=== PATIENT | male | born 1955 | race Caucasian/White ===

== ENCOUNTER 2017-02-20 14:23 | Emergency (ER) | payer SELFPAY ==
[~2017-02-20] VITALS: Ht 167.6 cm; Wt 75.0 kg
[~2017-02-20 14:23] MED LIST: DIAZ-90 PO; HYDR-3720 PO; MORP60TA37 PO; TRAZ100T15 PO
[2017-02-20 14:31] VITALS: Ht 167.6 cm; Wt 75.0 kg
== END 2017-02-20 19:30 | disposition left against medical advice (07) ==
LOC: E/R 14:23
DX: Z53.21 Procedure and treatment not carried out due to patient leaving prior to being seen by health care provider (principal)

== ENCOUNTER 2017-02-26 12:25 | Emergency (ER) | payer OTHER ==
[~2017-02-26] VITALS: Ht 170.2 cm; Wt 79.0 kg
[2017-02-26 12:30] VITALS: Ht 170.2 cm; Wt 79.0 kg
[2017-02-26] MEDS ORDERED: HYDROmorphONE 1 MG/ML SYG IV STA ×2 (13:08→15:38)
[2017-02-26] MEDS ORDERED: ONDANSETRON (ODT) 4 MG TAB ODT STA (13:08)
[2017-02-26] MEDS ORDERED: MORP-58 PO (13:09)
--- NOTE | 2017-02-26 13:12 | ERA ---
ER Documentation Chief Complaint Date/Time DATE: 02/26/17 TIME: 13:10 Chief Complaint CHRONIC RT ARM PAIN , STATES SENT BY DR WELCH NEEDS VASCULAR SURGERY HPI Patient is a 61-year-old male with history of chronic back pain who injected morphine for several years into bilateral arms for pain, and developed scar tissue in right greater than left arm. For the last 9 days he has been experiencing gradual onset constant, moderate to severe pain and discoloration to the right arm below the elbow, as well as paresthesias to his right arm distal to the elbow. He is seeing his primary doctor, Dr. Welch, who sent him to the ER for concern of thromboembolic disease. Patient denies fever, denies severe pain in the forearm, denies recent IV injection or history of drug abuse. Patient is left-hand dominant. ROS All systems reviewed and are negative except as per history of present illness. Medications Home Meds Reported Medications Morphine Sulfate* (Oramorph SR*) 30 Mg Tablet.sa, 30 MG PO Q4 Y for SEVERE PAIN LEVEL 7-10, TAB.SA 02/26/17 Discontinued Reported Medications Trazodone Hcl* (Trazodone Hcl*) 100 Mg Tablet, 100 MG PO HS, TAB 08/16/15 Hydrocodone Bit-Acetaminophen* ([place]*) 7.5-325 Tablet, 1 TAB PO Q4H Y for PAIN , TAB 03/18/15 Diazepam* (Valium*) 5 Mg Tablet, 10 MG PO PM, TAB 03/18/15 Morphine Sulfate* (Ms Contin*) 60 Mg Tablet.sa, 30 MG PO Q12, TAB.SA 03/18/15 Allergies Allergies: Coded Allergies: vancomycin (Verified Allergy, Mild, ITCHING, 02/26/17) PMhx/Soc Past medical history: Chronic back pain Past surgical history: Multiple back surgeries Social history: Smokes cigarettes, denies alcohol or illicit drugs History of Surgery: Yes Anesthesia Reaction: No Hx Neurological Disorder: No Hx Respiratory Disorders: No Hx Cardiac Disorders: No Hx Psychiatric Problems: No Hx Miscellaneous Medical Probl: Yes Hx Alcohol Use: No Hx Substance Use: No Hx Tobacco Use: Yes (PPD) FmHx Family History: No coronary disease, No diabetes Physical Exam Vitals Vital Signs Date Time Temp Pulse Resp B/P Pulse Ox O2 Delivery O2 Flow Rate FiO2 02/26/17 16:31 68 13 139/76 100 Room Air 02/26/17 13:27 98.2 97 16 160/100 96 Room Air 02/26/17 12:30 98.2 82 18 111/84 98 Physical Exam Const: Alert, in moderate distress, tremulous Head: Atraumatic Eyes: Normal Conjunctiva, no pallor or icterus ENT: Normal External Ears, Nose and Mouth. Mucous membranes moist Neck: Full range of motion. No meningismus. Resp: Clear to auscultation bilaterally, no wheezes, no rales Cardio: Regular rate and rhythm, no murmurs, 1+ radial pulse right arm 2+ left arm. Abd: Soft, non tender, non distended. Skin: Mottled appearance to right arm below the elbow, with embolic lesions to forearm and digits. 2-3 second capillary refill of all digits. Back: No midline or flank tenderness Ext: No cyanosis, or edema, compartments soft, extensive scar tissue to the right upper arm with tenderness, no fluctuance, no erythema, no induration. Neur: Awake and alert, cranial nerves II through XII intact bilaterally, motor intact in 4 extremities, sensation intact with paresthesias to the fingertips of right hand. Psych: Normal Mood and Affect Result Diagram: 02/26/17 1315 02/26/17 1315 Results 24 hrs Laboratory Tests Test 02/26/17 13:15 White Blood Count 6.010^3/ul Red Blood Count 4.3610^6/ul Hemoglobin 14.0g/dl Hematocrit 40.6% Mean Corpuscular Volume 93.1fl Mean Corpuscular Hemoglobin 32.1pg Mean Corpuscular Hemoglobin Concent 34.5g/dl Red Cell Distribution Width 12.3% Platelet Count 17649^3/UL Mean Platelet Volume 10.1fl Neutrophils % 66.2% Lymphocytes % 24.3% Monocytes % 7.4% Eosinophils % 1.5% Basophils % 0.3% Nucleated Red Blood Cells % 0.0/100WBC Neutrophils # 4.010^3/ul Lymphocytes # 1.510^3/ul Monocytes # 0.410^3/ul Eosinophils # 0.110^3/ul Basophils # 0.010^3/ul Nucleated Red Blood Cells # 0.010^3/ul Prothrombin Time 13.1Sec Prothrombin Time Ratio 1.0 INR International Normalized Ratio 0.99 Activated Partial Thromboplast Time 31.3Sec Sodium Level 137mmol/L Potassium Level 4.6mmol/L Chloride Level 101mmol/L Carbon Dioxide Level 29mmol/L Anion Gap 12 Blood Urea Nitrogen 22mg/dl Creatinine 1.11mg/dl Glucose Level 103mg/dl Calcium Level 9.5mg/dl Creatine Kinase 57IU/L Current Medications Medications (Trade) Dose Ordered Sig/Praful Route PRN Reason Start Time Stop Time Status Last Admin Dose Admin Hydromorphone HCl (Dilaudid) 1 mg ONCE STAT IV 02/26/17 13:08 02/26/17 13:09 DC 02/26/17 13:19 Ondansetron HCl 4 mg 4 mg ONCE STAT ODT 02/26/17 13:08 02/26/17 13:09 DC 02/26/17 13:19 Sodium Chloride (NS) 1,000 ml @ 1,000 mls/hr Q1H ONCE IV 02/26/17 13:30 02/26/17 14:29 DC 02/26/17 13:19 IV Flush 10 ml 10 ml STK-MED ONCE .ROUTE 02/26/17 15:29 02/26/17 15:30 DC 02/26/17 16:03 Sodium Chloride (NS) 100 ml @ ud STK-MED ONCE .ROUTE 02/26/17 15:29 02/26/17 15:30 DC 02/26/17 16:03 Iodixanol (Visipaque Locm) 100 ml STK-MED ONCE .ROUTE 02/26/17 15:29 02/26/17 15:30 DC 02/26/17 16:03 Hydromorphone HCl (Dilaudid) 1 mg ONCE STAT IV 02/26/17 15:38 02/26/17 15:39 DC 02/26/17 16:18 Aspirin 162 mg 162 mg ONCE STAT PO 02/26/17 16:53 02/26/17 16:57 DC 02/26/17 17:19 Heparin Sodium (Porcine) (Heparin 63615 Units/250 ml) 250 ml @ 0 mls/hr ONCE STAT IV 02/26/17 16:53 02/26/17 16:57 DC Procedures/MDM Spoke with Dr. Welch at 1250, requests vascular imaging and vascular surgery consult. Spoke with Dr. Wilde, vascular surgeon at 1:05 PM, requests CT angiogram and Doppler ultrasound of the extremity. MDM: Patient is a 61-year-old male sent in by Dr. Welch for 9 days of pain and mottling to right arm below the elbow. The patient has signs of thromboembolic disease in the arm and hand. Appearance of the arm is apparently improved compared to earlier in the week, but the patient has persistent pain and paresthesias. There is no pallor, skin is warm to touch, and there is minimal neurologic impairment with paresthesia to the fingertips only. A CT angiogram of the extremity demonstrated attenuation of the proximal brachial artery with diminished flow in the forearm. I discussed these findings with Dr. Wilde, who stated that there was concern for distal embolization based upon the patient 's exam, and that he would not be able to treat any thromboembolic disease, which would require embolectomy or thrombolysis. He therefore recommended transferring the patient to a tertiary care center for vascular surgery care. He also recommended starting the patient on a heparin drip. I discussed the plan to transfer the patient with the patient, and the patient refused to be transferred. I further discussed the patient's refusal with Dr. Welch and Dr. Wilde, who stated that if the patient decides to leave the hospital AMA, he recommends that the patient be put on Xarelto and that he can follow him in the clinic in 2 days. I had extensive discussion with the patient regarding the need for vascular surgery care, the urgency of having this done, including the risk of ischemia to the arm that could result in permanent disability of the arm or loss of the arm. The patient and his understood these risks, and the patient refused to be admitted to the hospital and signed an AMA form. I offered the patient a prescription for Xarelto, but the patient refused, citing history of optic ulcer disease and concern for risk of bleeding. I did provide the patient with information to contact Dr. Wilde, and encouraged him to follow-up in 2 days at his clinic. I advised the patient to return to the ER immediately if he experienced any worsening symptoms or changed his mind about seeking further vascular care. CT angiogram did show some fat stranding with question of cellulitis, but clinically there is no evidence of cellulitis, and the patient has no fever or leukocytosis. Critical Care: Time: 35 minutes exlcuding all billable procedures. Treatments/Evaluations: Serial neurovascular exams of an ischemic limb, discussion with radiology and vascular surgery regarding optimal workup and treatment, extensive discussion with the patient's physician, the patient and family regarding risks and benefits of treatment and other options. Planned interventions including heparinization and transfer for higher level of care. Departure Diagnosis: Primary Impression: Arterial occlusion Additional Impression: Thromboembolism of upper extremity artery Condition: JONNY Jerry MD Feb 26, 2017 13:12
[2017-02-26 13:27] VITALS: TEMP 98.2
[2017-02-26 13:30] LABS: ADD SCAN DIFF NO
[2017-02-26] MEDS ORDERED: SOD CHLORIDE 0.9% 1,000 ML IV ONE (13:30)
[2017-02-26 13:38] LABS: BASOPHILS % 0.3 % (0.0-2.0); EOSINOPHILS # 0.1 10^3/ul (0.0-0.5); EOSINOPHILS % 1.5 % (0.0-7.0); HEMATOCRIT 40.6 % (42.0-52.0); LYMPHOCYTES # 1.5 10^3/ul (0.8-2.9); LYMPHOCYTES % 24.3 % (15.0-51.0); MEAN CORPUSCULAR HEMOGLOBIN 32.1 pg (29.0-33.0); MEAN CORPUSCULAR HGB CONC 34.5 g/dl (32.0-37.0); MEAN CORPUSCULAR VOLUME 93.1 fl (82.0-101.0); MEAN PLATELET VOLUME 10.1 fl (7.4-10.4); MONOCYTE # 0.4 10^3/ul (0.3-0.9); MONOCYTES % 7.4 % (0.0-11.0); NEUTROPHILS % 66.2 % (39.0-77.0); PLATELET COUNT 241 10^3/UL (140-415); RED BLOOD COUNT 4.36 10^6/ul (4.70-6.10); RED CELL DISTRIBUTION WIDTH 12.3 % (11.5-14.5)
[2017-02-26 13:47] LABS: INR 0.99; PROTIME 13.1 Sec (12.2-14.2)
[2017-02-26 13:48] LABS: PARTIAL THROMBOPLASTIN TIME 31.3 Sec (25.0-35.0)
[2017-02-26 13:52] LABS: CALCIUM 9.5 mg/dl (8.4-10.2); CREATININE 1.11 mg/dl (0.61-1.24); POTASSIUM 4.6 mmol/L (3.5-5.1)
[2017-02-26] MEDS ORDERED: IODIXANOL LOCM 100 ML BTL ONE (15:29)
[2017-02-26] MEDS ORDERED: SOD CHLORIDE 0.9% 100 ML ONE (15:29)
--- NOTE | 2017-02-26 15:53 | RADRPT ---
PROCEDURE: US right upper extremity veins. CLINICAL INDICATION: Right arm pain and swelling. TECHNIQUE: Multiple longitudinal and transverse images of the right upper extremity venous tree wa s obtained with [place] scale, pulsed Doppler, and color Doppler imaging. COMPARISON: None available FINDINGS: The right internal jugular, subclavian, axillary, brachial, basilic, cephalic, radial, and ulnar vei ns are patent. There is normal flow with augmentation and compressibility throughout. There is no t hrombus or occlusion. IMPRESSION: 1. Normal venous system of the right upper extremity. No evidence of thrombus or occlusion. RPTAT: QQ .Blas Hart MD, MD Date Time Electronically viewed and signed by .Blas Hart MD, MD on 02/26/2017 15:53 .R/
[2017-02-26 16:31] VITALS: BP 139/76; PULSE 68; RESP 13
--- NOTE | 2017-02-26 16:35 | RADRPT ---
PROCEDURE: CTA right upper extremity. CLINICAL INDICATION: Right arm pain and swelling. Infection with drainage. Evaluate for embolus. TECHNIQUE: A CTA of the right upper extremity was performed on a multi-slice CT scanner utilizing high-resolution axial imaging. Sagittal, coronal, multiplanar reformatted images were made. 3-D MIP images were also reviewed. Images were acquired after 85 cc of Visipaque 320 were given intravenous ly without complication. COMPARISON: None FINDINGS: The study is very limited due to venous contamination. Right axillary artery is patent. There is s ignificant attenuation of the proximal right brachial artery. There is relatively normal caliber mi d distal right brachial artery to the level of the elbow joint. There is no adequate opacification of the radial ulnar/interosseous arteries in the forearm for the evaluation. There is an amorphous soft tissue thickening with dystrophic calcifications in the lateral aspect of the mid upper arm. There is a skin defect inferiorly. There is subcutaneous fatty stranding at th is level with no drainable fluid collection. IMPRESSION: The study is very limited for the evaluation of the right upper extremity arteries, as detailed abov e. The patient refused repeat scan per technologist note. Recommend right upper extremity arterial Doppler study. 1. Right axillary artery is patent. Attenuated proximal right brachial artery with relatively paolo l caliber mid distal right brachial artery. Inadequate opacification of the forearm arteries. 2. Amorphous soft tissue thickening and with dystrophic calcifications in the lateral mid upper arm . The skin defect in the inferior aspect of this soft tissue thickening with surrounding subcutaneo us fatty stranding suggesting cellulitis. No drainable fluid collection is identified. No destruct venus osseous changes of the humerus. RPTAT: BB .Cally Coulter MD, Date Time Electronically viewed and signed by .Cally Coulter MD, on 02/26/2017 16:35 .O/
[2017-02-26] MEDS ORDERED: HEPARIN 25000 UNITS/250 ML 250 ML IV STA (16:53)
[2017-02-26] MEDS ORDERED: ASPIRIN 81 MG TAB PO STA (16:53)
== END 2017-02-26 17:53 | disposition left against medical advice (07) ==
LOC: E/R 12:25
DX: I74.2 Embolism and thrombosis of arteries of the upper extremities (principal); F17.210 Nicotine dependence, cigarettes, uncomplicated
CPT/HCPCS: 36415; 73206; 80048; 82550; 82553; 84484; 85025; 85610; 85730; 93971; 96361; 96374; 96376; J1170; J1644; J7030; Q9967; Z7502; Z7610

== ENCOUNTER 2017-05-06 16:10 | Emergency (ER) | payer OTHER ==
[~2017-05-06] VITALS: Ht 170.2 cm; Wt 81.8 kg
[~2017-05-06 16:10] MED LIST changes: -DIAZ-90 PO; -HYDR-3720 PO; +MORP-58 PO; -MORP60TA37 PO; -TRAZ100T15 PO
[2017-05-06 16:13] VITALS: Ht 170.2 cm; Wt 81.8 kg
[2017-05-06] MEDS ORDERED: NITROGLYCERIN 2% 1 GM OINT PKT TD STA (19:15)
[2017-05-06] MEDS ORDERED: HYDROmorphONE 1 MG/ML SYG IV STA ×2 (19:15→19:24)
[2017-05-06] MEDS ORDERED: ONDANSETRON 4 MG INJ IV STA (19:15)
[2017-05-06] MEDS ORDERED: ASPIRIN 325 MG TAB PO STA (19:15)
[2017-05-06 19:31] LABS: ADD SCAN DIFF NO
[2017-05-06 19:33] LABS: BASOPHILS % 0.6 % (0.0-2.0); EOSINOPHILS # 0.1 10^3/ul (0.0-0.5); EOSINOPHILS % 1.9 % (0.0-7.0); HEMATOCRIT 40.3 % (42.0-52.0); HEMOGLOBIN 14.4 g/dl (14.0-18.0); LYMPHOCYTES # 2.2 10^3/ul (0.8-2.9); LYMPHOCYTES % 35.8 % (15.0-51.0); MEAN CORPUSCULAR HEMOGLOBIN 32.4 pg (29.0-33.0); MEAN CORPUSCULAR HGB CONC 35.7 g/dl (32.0-37.0); MEAN CORPUSCULAR VOLUME 90.6 fl (82.0-101.0); MEAN PLATELET VOLUME 10.3 fl (7.4-10.4); MONOCYTE # 0.5 10^3/ul (0.3-0.9); MONOCYTES % 8.3 % (0.0-11.0); NEUTROPHIL # 3.3 10^3/ul (1.6-7.5); NEUTROPHILS % 53.2 % (39.0-77.0); PLATELET COUNT 161 10^3/UL (140-415); RED BLOOD COUNT 4.45 10^6/ul (4.70-6.10); RED CELL DISTRIBUTION WIDTH 12.6 % (11.5-14.5); WHITE BLOOD COUNT 6.3 10^3/ul (4.8-10.8)
[2017-05-06 19:48] LABS: INR 0.92; PARTIAL THROMBOPLASTIN TIME 28.6 Sec (25.0-35.0); PROTIME 12.4 Sec (12.2-14.2)
--- NOTE | 2017-05-06 20:01 | ERA ---
ER Documentation Chief Complaint Date/Time DATE: 05/06/17 TIME: 19:58 Chief Complaint CHEST PAIN COMES AND GOES, STARTED YESTERDAY, SOB HPI 61-year-old male, ronald, who presents to the emergency room complaining of chest pain. The patient is a somewhat difficult historian. He does have a history of chronic pain. Vasculopath. The patient states a remote angiogram approximately 20 years ago. He describes approximately 24 hours of pain that is substernal to the chest slightly radiating to the left shoulder but not to the back. He notes mild shortness of breath but no pleuritic pain, no calf swelling. Only mild pain currently. ROS All systems reviewed and are negative except as per history of present illness. Medications Home Meds Reported Medications Morphine Sulfate* (Oramorph SR*) 30 Mg Tablet.sa, 30 MG PO Q4 Y for SEVERE PAIN LEVEL 7-10, TAB.SA 02/26/17 Allergies Allergies: Coded Allergies: vancomycin (Verified Allergy, Mild, ITCHING, 02/26/17) PMhx/Soc History of Surgery: Yes Anesthesia Reaction: No Hx Neurological Disorder: No Hx Respiratory Disorders: No Hx Cardiac Disorders: No ([place]) Hx Psychiatric Problems: No Hx Miscellaneous Medical Probl: Yes (fibromyalgia) Hx Alcohol Use: No Hx Substance Use: No Hx Tobacco Use: Yes (PPD) Physical Exam Vitals Vital Signs Date Time Temp Pulse Resp B/P Pulse Ox O2 Delivery O2 Flow Rate FiO2 05/06/17 16:13 97.6 84 18 191/80 91 Physical Exam General: Well developed, well nourished, no acute distress Head: Normocephalic, atraumatic. Eyes: Pupils equally reactive, EOM intact ENT: Moist mucous membranes Neck: Supple, no lymphadenopathy Respiratory: Lungs clear bilaterally, no distress Cardiovascular: RRR, no murmurs, rubs, or gallops Abdominal: Soft, non-tender, non-distended, no peritoneal signs : Deferred MSK: No edema, no unilateral swelling, 5/5 strength Neurologic: Alert and oriented, moving all extremities, normal speech, no focal weakness, no cerebellar signs Skin: No rash Psych: Normal mood Result Diagram: 05/06/17192405/06/171924 Results 24 hrs Laboratory Tests Test 05/06/17 19:25 White Blood Count 6.310^3/ul Red Blood Count 4.4510^6/ul Hemoglobin 14.4g/dl Hematocrit 40.3% Mean Corpuscular Volume 90.6fl Mean Corpuscular Hemoglobin 32.4pg Mean Corpuscular Hemoglobin Concent 35.7g/dl Red Cell Distribution Width 12.6% Platelet Count 37605^3/UL Mean Platelet Volume 10.3fl Neutrophils % 53.2% Lymphocytes % 35.8% Monocytes % 8.3% Eosinophils % 1.9% Basophils % 0.6% Nucleated Red Blood Cells % 0.0/100WBC Neutrophils # 3.310^3/ul Lymphocytes # 2.210^3/ul Monocytes # 0.510^3/ul Eosinophils # 0.110^3/ul Basophils # 0.010^3/ul Nucleated Red Blood Cells # 0.010^3/ul Prothrombin Time 12.4Sec Prothrombin Time Ratio 1.0 INR International Normalized Ratio 0.92 Activated Partial Thromboplast Time 28.6Sec Sodium Level 141mmol/L Potassium Level 4.7mmol/L Chloride Level 104mmol/L Carbon Dioxide Level 26mmol/L Anion Gap 16 Blood Urea Nitrogen 32mg/dl Creatinine 1.11mg/dl Glucose Level 91mg/dl Calcium Level 9.7mg/dl Troponin I < 0.012ng/ml Current Medications Medications (Trade) Dose Ordered Sig/Praful Route PRN Reason Start Time Stop Time Status Last Admin Dose Admin Aspirin (Aspirin) 325 mg ONCE STAT PO 05/06/17 19:15 05/06/17 19:17 DC 05/06/17 19:26 Nitroglycerin (Nitroglycerin 2% Oint) 1 inch ONCE STAT TD 05/06/17 19:15 05/06/17 19:18 DC 05/06/17 19:25 Hydromorphone HCl (Dilaudid) 1 mg ONCE STAT IV 05/06/17 19:15 05/06/17 19:18 DC 05/06/17 19:26 Ondansetron HCl (Zofran Inj) 4 mg ONCE STAT IV 05/06/17 19:15 05/06/17 19:18 DC 05/06/17 19:26 Hydromorphone HCl (Dilaudid) 1 mg ONCE STAT IV 05/06/17 19:24 05/06/17 19:25 DC 6/19/17 19:32 Procedures/MDM EKG, MONITORS, & DIAGNOSTIC IMAGING: EKG: I reviewed and interpreted a 12-lead EKG. Rhythm: Normal sinus rhythm Ectopy: None Intervals: No abnormalities ST segments: No elevations or depressions T waves: No contiguous inversions Repeat EKG: EKG: I reviewed and interpreted a 12-lead EKG. Rhythm: Normal sinus rhythm Ectopy: None Intervals: No abnormalities ST segments: No elevations or depressions T waves: No contiguous inversions Chest x-ray: I reviewed and interpreted a 1 view of the chest Mediastinum: No enlargement Cardiac silhouette: No cardiomegaly Airspace: Clear lung cassidy bilaterally without evidence of pneumothorax Bones: No evidence of fracture LAB INTERPRETATION: Negative troponin MEDICAL DECISION MAKING: The patient's history, physical exam and clinical presentation is concerning for possible cardiogenic etiology and acute coronary syndrome. Based on the patient's clinical exam and history and risk factors, I have a much lower clinical concern for pulmonary embolism, acute aortic dissection, pneumothorax, pneumonia, cardiac tamponade HEART Score: 5 MACE Rate: 16.6% Shared Decision Making: We had a conversation regarding risk stratification, MACE rate, and the risks, benefits, alternatives of disposition planning options. Disposition planning: Strong recommendation for hospitalization given risk profile ER COURSE: The patient has chronic pain and is requesting Dilaudid. A single dose of 2 mg Dilaudid provided. Patient was given aspirin and nitroglycerin. Chest pain is improved. I kept the patient and/or family informed of laboratory and diagnostic imaging results throughout the emergency room course. DISPOSITION PLAN: Telemetry admission to rule out acute coronary syndrome, risk stratification CONSULTATION: Accepting care team and consultations: I discussed the current laboratory data, diagnostic imaging and emergency care provided. Admitting team: Dr. Hopson Admitting team indication: Insurance directed Departure Diagnosis: Primary Impression: Chest pain Qualified Code: R07.9 - Chest pain, unspecified type Condition: Stable WILBUR MUÑOZ MD May 06, 2017 20:01
[2017-05-06 20:02] LABS: ANION GAP 16 (8-16); BLOOD UREA NITROGEN 32 mg/dl (7-20); CALCIUM 9.7 mg/dl (8.4-10.2); CARBON DIOXIDE 26 mmol/L (21-31); CHLORIDE 104 mmol/L (97-110); CREATININE 1.11 mg/dl (0.61-1.24); GLUCOSE 91 mg/dl (70-220); POTASSIUM 4.7 mmol/L (3.5-5.1); SODIUM 141 mmol/L (135-144)
--- NOTE | 2017-05-06 20:15 | RADRPT ---
PROCEDURE: Chest x-ray CLINICAL INDICATION: Chest pain TECHNIQUE: Chest single view COMPARISON: 04/26/2016 FINDINGS: The heart is normal in size. The pulmonary vessels are normal in caliber. The lungs are clear. Th e costophrenic angles are sharp. The visualized bony thorax is unremarkable. There is extensive cer vical spine hardware which is unchanged IMPRESSION: No acute cardiopulmonary disease. No interval change RPTAT: HH .Anshul Crowley MD, MD Date Time Electronically viewed and signed by .Anshul Crowley MD, on 05/06/2017 20:15 .W/
[2017-05-06 20:40] LABS: TROPONIN-I < 0.012 ng/ml (0.00-0.12)
[2017-05-06] MEDS ORDERED: ONDANSETRON 4 MG INJ IV PRN (21:00)
[2017-05-06] MEDS ORDERED: ACETAMINOPHEN 325 MG TAB PO PRN (21:00)
[2017-05-07 01:00] VITALS: BP 98/67; PULSE 67; RESP 14
[2017-05-07] MEDS ORDERED: HYDROCODONE/APAP (5/325) TAB PO PRN (01:00)
[2017-05-07] MEDS ORDERED: morphine (ER) 30 MG TAB PO PRN (01:00)
[2017-05-07] MEDS ORDERED: ONDANSETRON 4 MG INJ IV PRN (01:00)
[2017-05-07] MEDS ORDERED: ZOLPIDEM 5 MG TAB PO PRN (01:00)
[2017-05-07] MEDS ORDERED: DOCUSATE SODIUM 100 MG CAP PO PRN (01:00)
[2017-05-07] MEDS ORDERED: NITROGLYCERIN (SL) 0.4 MG TAB SL PRN (01:00)
[2017-05-07] MEDS ORDERED: ACETAMINOPHEN 325 MG TAB PO PRN (01:00)
[2017-05-07] MEDS ORDERED: morphine 2 MG INJ IV PRN (01:00)
[2017-05-07] MEDS ORDERED: MAGNESIUM HYDROXIDE 30ML CUP PO PRN (01:00)
[2017-05-07] MEDS ORDERED: NACL 0.9% 3 ML SYG IV SCH (01:00)
[2017-05-07 02:09] LABS: CREATINE KINASE 43 IU/L (23-200)
[2017-05-07 02:34] LABS: CK-MB 1.09 ng/ml (0.0-2.4); TROPONIN-I < 0.012 ng/ml (0.00-0.12)
--- NOTE | 2017-05-07 03:19 | HP ---
DATE OF ADMISSION: 05/06/2017 CHIEF COMPLAINT: Chest pain. 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 It appears to be a vasculopath. The patient has had extensive spinal surgeries in the [facility] with Dr. Pérez with neurosurgery. The patient does state that he has chronic chest pain but it b ecame acutely worse yesterday. He stated that he took some nitroglycerin and morphine and the pain did improve but became concerned. Patient is a somewhat poor historian and quite verbose. The nikolay ent appears to have multiple medical issues, mostly pertaining to pain in various parts of his body. His main complaint at this time is his chest pain. PAST MEDICAL HISTORY: Chronic pain with spinal surgery in the past. HOME MEDICATIONS: Morphine. ALLERGIES: VANCOMYCIN. FAMILY HISTORY: Noncontributory. SOCIAL HISTORY: The patient is a smoker. He states that he recently quit. He denies any alcohol a buse, drug abuse. REVIEW OF SYSTEMS: A 12-point review of systems negative except as in HPI. PHYSICAL EXAMINATION: VITAL SIGNS: Temperature is 97.6, pulse 87, respiratory rate 16, BP 139/84, saturation 95% room air . GENERAL: In no acute distress, alert and oriented. HEENT: Normocephalic, atraumatic. LUNGS: Clear to auscultation. CARDIOVASCULAR: Regular rate and rhythm. ABDOMEN: Nondistended, nontender, soft. EXTREMITIES: No clubbing, cyanosis, or edema. LABORATORIES: White count 6.3, hemoglobin 14.4, platelets are 161,000. Chemistry within normal deleon its except for a BUN of 32. Troponin is negative. INR is normal. DIAGNOSTICS: Chest x-ray shows no acute cardiopulmonary disease. EKG shows normal sinus rhythm, no signs of ischemia. ASSESSMENT AND PLAN: 1. Intermittent chest pain. The patient denies any history of bypass surgery or PCIs. He does sta te that he was told he has had 2 little heart attacks in the past. We will obtain a 2D echo, trend troponins. The patient will likely need a cardiology consultation in the a.m. 2. Neck discomfort. Patient states that he feels as though he has a blockage in his neck. No brui ts are appreciated on physical exam. 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 Will obtain a carotid ultrasound for further evaluation. 3. Chronic pain. Will treat with [place] and morphine, as well as Tylenol as needed. 3. Prophylaxis. Lovenox. Dictated By: BING MORRIS MD BS/NTS Conf#: [id number] DID#: [id number]
[2017-05-07] MEDS ORDERED: ENOXAPARIN 40 MG/0.4 ML SYG SC SCH (09:00)
[2017-05-08] MEDS ORDERED: ASPIRIN 81 MG TAB PO SCH (09:00)
== END 2017-05-07 03:54 | disposition left against medical advice (07) ==
LOC: FTE 16:10 → E/R 05-07 03:54
DX: R07.9 Chest pain, unspecified (principal)
CPT/HCPCS: 36415; 71010; 80048; 82550; 82553; 84484; 85025; 85610; 85730; 93005; 96374; 96375; J1170; J2405; Z7502; Z7610

== ENCOUNTER 2017-05-16 09:47 | Inpatient (IN) | payer OTHER ==
[~2017-05-16] VITALS: Ht 157.5 cm; Wt 79.5 kg
[2017-05-16 09:51] VITALS: Ht 157.5 cm; Wt 79.5 kg
[2017-05-16] MEDS ORDERED: ASPIRIN 325 MG TAB PO STA (10:03)
[2017-05-16] MEDS ORDERED: NITROGLYCERIN 2% 1 GM OINT PKT TD STA (10:03)
[2017-05-16] MEDS ORDERED: TRAZ100T15 PO (10:14)
[2017-05-16] MEDS ORDERED: NIT4 SL (10:14)
[2017-05-16] MEDS ORDERED: DIAZ10TA4 PO (10:14)
[2017-05-16 10:24] LABS: ADD SCAN DIFF NO
[2017-05-16 10:28] LABS: BASOPHILS % 0.5 % (0.0-2.0); EOSINOPHILS # 0.1 10^3/ul (0.0-0.5); EOSINOPHILS % 1.3 % (0.0-7.0); HEMATOCRIT 40.4 % (42.0-52.0); LYMPHOCYTES # 1.9 10^3/ul (0.8-2.9); LYMPHOCYTES % 31.3 % (15.0-51.0); MEAN CORPUSCULAR HEMOGLOBIN 31.3 pg (29.0-33.0); MEAN CORPUSCULAR HGB CONC 34.7 g/dl (32.0-37.0); MEAN CORPUSCULAR VOLUME 90.2 fl (82.0-101.0); MEAN PLATELET VOLUME 10.2 fl (7.4-10.4); MONOCYTE # 0.5 10^3/ul (0.3-0.9); MONOCYTES % 7.8 % (0.0-11.0); NEUTROPHIL # 3.5 10^3/ul (1.6-7.5); NEUTROPHILS % 58.9 % (39.0-77.0); PLATELET COUNT 168 10^3/UL (140-415); RED BLOOD COUNT 4.48 10^6/ul (4.70-6.10); RED CELL DISTRIBUTION WIDTH 12.8 % (11.5-14.5)
[2017-05-16] MEDS ORDERED: ONDANSETRON 4 MG INJ IV STA (10:35)
[2017-05-16 10:41] LABS: INR 0.93; PROTIME 12.5 Sec (12.2-14.2)
[2017-05-16 10:42] LABS: PARTIAL THROMBOPLASTIN TIME 31.6 Sec (25.0-35.0)
[2017-05-16 10:47] LABS: ANION GAP 12 (8-16); BLOOD UREA NITROGEN 28 mg/dl (7-20); CALCIUM 9.3 mg/dl (8.4-10.2); CARBON DIOXIDE 26 mmol/L (21-31); CHLORIDE 104 mmol/L (97-110); CREATININE 1.22 mg/dl (0.61-1.24); GLUCOSE 93 mg/dl (70-220); SODIUM 138 mmol/L (135-144)
--- NOTE | 2017-05-16 10:51 | ERA ---
ER Documentation Chief Complaint Date/Time DATE: 05/16/17 TIME: 10:49 Chief Complaint Complains of chest pain x weeks HPI 61-year-old gentleman who presents the emergency room with chest pain. The patient describes several weeks of chest pain that is substernal pressure-like with associated diaphoresis and nausea. The patient had her hospitalization approximately 9 days ago but left prior to completion of workup including cardiology consultation. The patient states that he left AMA or "the nurses felt I should go home ". The patient does describe mild chest discomfort currently. He denies any pleuritic pain fevers or chills. The patient does have a history of chronic pain and sees a pain specialist. ROS All systems reviewed and are negative except as per history of present illness. Medications Home Meds Reported Medications Nitroglycerin* (Nitrostat*) 0.4 Mg Tab.subl, 0.4 MG SL Q5MIN Y for CHEST PAIN, BOTTLE 05/16/17 Trazodone Hcl* (Trazodone Hcl*) 100 Mg Tablet, 200-400 MG PO QHS, #30 TAB 05/16/17 Diazepam* (Diazepam*) 10 Mg Tablet, 10 MG PO TID, TAB 05/16/17 Morphine Sulfate* (Oramorph SR*) 30 Mg Tablet.sa, 30 MG PO Q4 Y for SEVERE PAIN LEVEL 7-10, TAB.SA 02/26/17 Allergies Allergies: Coded Allergies: vancomycin (Verified Allergy, Mild, ITCHING, 05/16/17) PMhx/Soc History of Surgery: Yes Anesthesia Reaction: No Hx Neurological Disorder: No Hx Respiratory Disorders: No Hx Cardiac Disorders: No ([place]) Hx Psychiatric Problems: No Hx Miscellaneous Medical Probl: Yes (fibromyalgia) Hx Alcohol Use: No Hx Substance Use: No Hx Tobacco Use: Yes (PPD) Smoking Status: Current every day smoker FmHx Family History: No diabetes Physical Exam Vitals Vital Signs Date Time Temp Pulse Resp B/P Pulse Ox O2 Delivery O2 Flow Rate FiO2 05/16/17 10:15 Nasal Cannula 2 05/16/17 09:51 98.0 86 20 128/84 95 Physical Exam General: Well developed, well nourished, no acute distress Head: Normocephalic, atraumatic. Eyes: Pupils equally reactive, EOM intact ENT: Moist mucous membranes Neck: Supple, no lymphadenopathy Respiratory: Lungs clear bilaterally, no distress Cardiovascular: RRR, no murmurs, rubs, or gallops Abdominal: Soft, non-tender, non-distended, no peritoneal signs : Deferred MSK: No edema, no unilateral swelling, 5/5 strength Neurologic: Alert and oriented, moving all extremities, normal speech, no focal weakness, no cerebellar signs Skin: No rash Psych: Normal mood Result Diagram: 05/16/17 1016 05/16/17 1016 Results 24 hrs Laboratory Tests Test 05/16/17 10:16 White Blood Count 6.010^3/ul Red Blood Count 4.4810^6/ul Hemoglobin 14.0g/dl Hematocrit 40.4% Mean Corpuscular Volume 90.2fl Mean Corpuscular Hemoglobin 31.3pg Mean Corpuscular Hemoglobin Concent 34.7g/dl Red Cell Distribution Width 12.8% Platelet Count 76187^3/UL Mean Platelet Volume 10.2fl Neutrophils % 58.9% Lymphocytes % 31.3% Monocytes % 7.8% Eosinophils % 1.3% Basophils % 0.5% Nucleated Red Blood Cells % 0.0/100WBC Neutrophils # 3.510^3/ul Lymphocytes # 1.910^3/ul Monocytes # 0.510^3/ul Eosinophils # 0.110^3/ul Basophils # 0.010^3/ul Nucleated Red Blood Cells # 0.010^3/ul Prothrombin Time 12.5Sec Prothrombin Time Ratio 1.0 INR International Normalized Ratio 0.93 Activated Partial Thromboplast Time 31.6Sec Sodium Level 138mmol/L Potassium Level 4.0mmol/L Chloride Level 104mmol/L Carbon Dioxide Level 26mmol/L Anion Gap 12 Blood Urea Nitrogen 28mg/dl Creatinine 1.22mg/dl Glucose Level 93mg/dl Calcium Level 9.3mg/dl Troponin I < 0.012ng/ml Current Medications Medications (Trade) Dose Ordered Sig/Praful Route PRN Reason Start Time Stop Time Status Last Admin Dose Admin Aspirin (Aspirin) 325 mg ONCE STAT PO 05/16/17 10:03 05/16/17 10:05 DC 05/16/17 10:23 Nitroglycerin (Nitroglycerin 2% Oint) 1 inch ONCE STAT TD 05/16/17 10:03 05/16/17 10:05 DC 05/16/17 10:24 Ondansetron HCl (Zofran Inj) 4 mg ONCE STAT IV 05/16/17 10:35 05/16/17 10:36 DC 05/16/17 10:44 Procedures/MDM EKG, MONITORS, & DIAGNOSTIC IMAGING: EKG: I reviewed and interpreted a 12-lead EKG. Rhythm: Normal sinus rhythm Ectopy: None Intervals: No abnormalities ST segments: No elevations or depressions T waves: No contiguous inversions Repeat EKG: EKG: I reviewed and interpreted a 12-lead EKG. Rhythm: Normal sinus rhythm Ectopy: None Intervals: No abnormalities ST segments: No elevations or depressions T waves: No contiguous inversions Chest x-ray: I reviewed and interpreted a 1 view of the chest Mediastinum: No enlargement Cardiac silhouette: No cardiomegaly Airspace: Clear lung cassidy bilaterally without evidence of pneumothorax Bones: No evidence of fracture LAB INTERPRETATION: Negative troponin MEDICAL DECISION MAKING: The patient's history, physical exam and clinical presentation is concerning for possible cardiogenic etiology and acute coronary syndrome. Based on the patient's clinical exam and history and risk factors, I have a much lower clinical concern for pulmonary embolism, acute aortic dissection, pneumothorax, pneumonia, cardiac tamponade HEART Score: 5 MACE Rate: 16.6 percent Shared Decision Making: We had a conversation regarding risk stratification, MACE rate, and the risks, benefits, alternatives of disposition planning options. Disposition planning: Given that the patient did not complete his inpatient workup, repeat hospitalization is appropriate, patient is agreeable to stay for complete workup ER COURSE: Aspirin and nitroglycerin given. No IV narcotics will be provided to this patient given his chronic pain. Patient wishes to take his home medications. I kept the patient and/or family informed of laboratory and diagnostic imaging results throughout the emergency room course. DISPOSITION PLAN: Telemetry admission for management of chest pain CONSULTATION: Accepting care team and consultations: I discussed the current laboratory data, diagnostic imaging and emergency care provided. Admitting team: Dr. Sullivan Admitting team indication: Insurance directed Departure Diagnosis: Primary Impression: Chest pain Qualified Code: R07.9 - Chest pain, unspecified type Condition: Stable WILBUR MUÑOZ MD May 16, 2017 10:51
[2017-05-16 11:00] LABS: TROPONIN-I < 0.012 ng/ml (0.00-0.12)
--- NOTE | 2017-05-16 11:40 | RADRPT ---
PROCEDURE: XR Chest. CLINICAL INDICATION: Chest pain TECHNIQUE: A single AP view of the chest was obtained. COMPARISON: Chest x-ray dated 05/06/2017 FINDINGS: There is mild bibasilar atelectasis versus scarring. No focal airspace opacification, pleural effus ion or pneumothorax is seen. The cardiomediastinal silhouette is mildly enlarged. The osseous stru ctures demonstrate postsurgical changes from posterior cervical fusion. IMPRESSION: 1. No radiographic evidence of acute cardiopulmonary disease. No significant interval change. 2. Mild cardiomegaly. RPTAT: HH .Kaitlyn Rudd MD, MD Date Time Electronically viewed and signed by .Kaitlyn Rudd MD, MD on 05/16/2017 11:40 .G/
[2017-05-16] MEDS ORDERED: ACETAMINOPHEN 325 MG TAB PO PRN (12:00)
[2017-05-16] MEDS ORDERED: ONDANSETRON 4 MG INJ IV PRN (12:00)
[2017-05-16 13:16] VITALS: BP 114/71; RESP 18; TEMP 98.6
[2017-05-16 16:19] VITALS: PULSE 67
[2017-05-16 16:54] LABS: CREATINE KINASE 68 IU/L (23-200)
[2017-05-16 17:13] LABS: CK-MB 1.27 ng/ml (0.0-2.4); TROPONIN-I < 0.012 ng/ml (0.00-0.12)
--- NOTE | 2017-05-16 18:09 | HP ---
Date/Time of Note Date/Time of Note DATE: 05/16/17 TIME: 17:57 Assessment/Plan VTE Prophylaxis VTE Prophylaxis Intervention: SCD's Lines/Catheters IV Catheter Type (from Nrs): Saline Lock Assessment/Plan Chief Complaint/Hosp Course Assessment 1. Chest pain. To rule out acute coronary syndrome. 2. Chronic back pain. 3. Nicotine use. 4. Substance abuse. 5. Noncompliance with medications and medical management. 6. Opioid dependence. Plan 1. Obtain serial troponins. Obtain 2D echo. Cardiology consult. 2. Continue pain control. Nicotine patch for nicotine use. Plan: The patient will be admitted to inpatient telemetry floor. The patient will be started on a low-cholesterol diet. The patient will be started on DVT prophylaxis and gastrointestinal prophylaxis. The patient will remain a full code. Activities will be as tolerated. The rest of the patient's management will be based on the clinical course and the results of diagnostic studies. Based on the patient's clinical presentation, he most probably requires at least 1 midnight's stay for further management and evaluation of his clinical presentation. The case and management of this patient was fully discussed with Dr. Sullivan Problems: HPI/YEIMI Admit Date/Time Admit Date/Time May 16, 2017 at 11:54 Hx of Present Illness This is a 61-year-old male with opioid dependency status post multiple back surgeries, prior history of essential hypertension, nicotine use, substance abuse, and noncompliance with medications and medical management who came to the emergency room with chief complaint of chest pain. The patient was seen in the emergency room on 05/07/2017 with similar complaints and the patient was scheduled to be admitted to the hospital. However, he left the hospital AGAINST MEDICAL ADVICE. The patient's complaints of chest pain are vague. He verbalized the chest pain as episodic with associated dizziness and syncope. He denied any associated diaphoresis, nausea, or vomiting. Patient underwent a chest x-ray in the emergency room that was negative for any acute cardiopulmonary findings. The patient's 12-lead EKG showed normal sinus rhythm. In the emergency room, the patient has been taking his own pain medications despite instructions by nursing personnel. Upon my interview, he was insisting that he will keep his medications with him and he will take his on pain medications. He was not disclosing what medications he has in his bag. Patient was informed that he needs to follow the hospital policies and only if he is willing to follow the hospital policies, the patient can stay in the hospital and have cardiology evaluate him. ROS Constitutional: no complaints Eyes: no complaints ENT: no complaints Respiratory: no complaints Cardiovascular: chest pain, lightheadedness Gastrointestinal: no complaints Genitourinary: no complaints Musculoskeletal: back pain Skin: no complaints Neurologic: syncope Endocrine: no complaints Lymphatic: no complaints Psychological: anxiety Immunologic: no complaints PMH/Family/Social Past Medical History Medical History: hypertension, other (Chronic back pain, opioid dependent, nicotine use) Past Surgical History Past Surgical Hx: other (Multiple back surgeries) Family History Significant Family History: heart disease Social History Alcohol Use: none Smoking Status: Current every day smoker Drug Use: marijuana Exam/Review of Systems Vital Signs Vitals Vital Signs Date Time Temp Pulse Resp B/P Pulse Ox O2 Delivery O2 Flow Rate FiO2 05/16/17 16:19 67 05/16/17 13:16 98.6 18 114/71 100 Room Air 05/16/17 10:15 2 Exam Exam General: Adequately build 61 year-old male lying in bed in no apparent distress. HEENT: Normocephalic, atraumatic. Eyes: Anicteric sclerae, conjunctivae clear. ENT: Nasal septum midline, oral mucosa moist. Neck supple, no JVD noticed. Respiratory: Bilaterally clear breath sounds. No use of accessory muscles of respiration. No adventitious breath sounds. Cardiovascular: S1, S2 heard. No murmurs or gallops. Abdomen: Soft, nontender, and nondistended. Bowel sounds positive in all 4 quadrants. Genitourinary: Deferred. Extremities: No cyanosis, no clubbing, no edema. Peripheral pulses palpable. Neurologic: Cranial nerves II through XII grossly intact. The patient is awake, alert, and oriented. Skin: Normal skin turgor. No skin rashes. Labs Result Diagram: 05/16/17 1016 05/16/17 1016 Procedures Procedures CXR IMPRESSION: 1. No radiographic evidence of acute cardiopulmonary disease. No significant interval change. 2. Mild cardiomegaly. LEO SIMMONS NP May 16, 2017 18:08
--- NOTE | 2017-05-16 18:11 | DS ---
Date/Time of Note Date/Time of Note DATE: 05/16/17 TIME: 18:09 Discharge Summary Admission/Discharge Info Admit Date/Time May 16, 2017 at 11:54 Discharge Date/Time May 16, 2017 at 17:44 Discharge Diagnosis 1. Chest pain. To rule out acute coronary syndrome. 2. Chronic back pain. 3. Nicotine use. 4. Substance abuse. 5. Noncompliance with medications and medical management. 6. Opioid dependence. Patient Condition: Fair Hx of Present Illness This is a 61-year-old male with opioid dependency status post multiple back surgeries, prior history of essential hypertension, nicotine use, substance abuse, and noncompliance with medications and medical management who came to the emergency room with chief complaint of chest pain. The patient was seen in the emergency room on 05/07/2017 with similar complaints and the patient was scheduled to be admitted to the hospital. However, he left the hospital AGAINST MEDICAL ADVICE. The patient's complaints of chest pain are vague. He verbalized the chest pain as episodic with associated dizziness and syncope. He denied any associated diaphoresis, nausea, or vomiting. Patient underwent a chest x-ray in the emergency room that was negative for any acute cardiopulmonary findings. The patient's 12-lead EKG showed normal sinus rhythm. In the emergency room, the patient has been taking his own pain medications despite instructions by nursing personnel. Upon my interview, he was insisting that he will keep his medications with him and he will take his on pain medications. He was not disclosing what medications he has in his bag. Patient was informed that he needs to follow the hospital policies and only if he is willing to follow the hospital policies, the patient can stay in the hospital and have cardiology evaluate him. Hospital Course The patient insisted on keeping his opioids and other undisclosed medications with himself. He was informed about the hospital policy of retrieving any patient medications and sending it to the pharmacy for verification. The nursing real estate office supervisor and charge nurse was present at the bedside explaining him the hospital policies. Nevertheless, the patient was unwilling to disclose his medications. Finally, the patient decided to leave the hospital AGAINST MEDICAL ADVICE. He was advised about the consequences of leaving the hospital AGAINST MEDICAL ADVICE including the possibility of . Nevertheless he left the hospital. No discharge planning was done since the patient left the hospital AGAINST MEDICAL ADVICE. In fact, the patient was just moved to inpatient room from the ER and he decided to leave the hospital AGAINST MEDICAL ADVICE. Case discussed with . Home Meds Reported Medications Nitroglycerin* (Nitrostat*) 0.4 Mg Tab.subl, 0.4 MG SL Q5MIN Y for CHEST PAIN, BOTTLE 05/16/17 Trazodone Hcl* (Trazodone Hcl*) 100 Mg Tablet, 200-400 MG PO QHS, #30 TAB 05/16/17 Diazepam* (Diazepam*) 10 Mg Tablet, 10 MG PO TID, TAB 05/16/17 Morphine Sulfate* (Oramorph SR*) 30 Mg Tablet.sa, 30 MG PO Q4 Y for SEVERE PAIN LEVEL 7-10, TAB.SA 02/26/17 Follow-up Plan No follow-up plan was given since the patient left the hospitalist against medical advice. Case discussed with Dr. Sullivan. Primary Care Provider Not On Staff Doctor Time spent on discharge: < 30 minutes Pending Labs Laboratory Tests Test 05/16/17 10:16 05/16/17 16:20 White Blood Count 6.010^3/ul (4.8-10.8) Red Blood Count 4.4810^6/ul (4.70-6.10) Hemoglobin 14.0g/dl (14.0-18.0) Hematocrit 40.4% (42.0-52.0) Mean Corpuscular Volume 90.2fl (82.0-101.0) Mean Corpuscular Hemoglobin 31.3pg (29.0-33.0) Mean Corpuscular Hemoglobin Concent 34.7g/dl (32.0-37.0) Red Cell Distribution Width 12.8% (11.5-14.5) Platelet Count 55929^3/UL (140-415) Mean Platelet Volume 10.2fl (7.4-10.4) Neutrophils % 58.9% (39.0-77.0) Lymphocytes % 31.3% (15.0-51.0) Monocytes % 7.8% (0.0-11.0) Eosinophils % 1.3% (0.0-7.0) Basophils % 0.5% (0.0-2.0) Nucleated Red Blood Cells % 0.0/100WBC (0.0-0.0) Neutrophils # 3.510^3/ul (1.6-7.5) Lymphocytes # 1.910^3/ul (0.8-2.9) Monocytes # 0.510^3/ul (0.3-0.9) Eosinophils # 0.110^3/ul (0.0-0.5) Basophils # 0.010^3/ul (0.0-0.1) Nucleated Red Blood Cells # 0.010^3/ul (0.0-0.0) Prothrombin Time 12.5Sec (12.2-14.2) Prothrombin Time Ratio 1.0 INR International Normalized Ratio 0.93 Activated Partial Thromboplast Time 31.6Sec (25.0-35.0) Sodium Level 138mmol/L (135-144) Potassium Level 4.0mmol/L (3.5-5.1) Chloride Level 104mmol/L (97-110) Carbon Dioxide Level 26mmol/L (21-31) Anion Gap 12 (8-16) Blood Urea Nitrogen 28mg/dl (7-20) Creatinine 1.22mg/dl (0.61-1.24) Glucose Level 93mg/dl (70-220) Calcium Level 9.3mg/dl (8.4-10.2) Troponin I < 0.012ng/ml (0.00-0.12) < 0.012ng/ml (0.00-0.12) Creatine Kinase 68IU/L (23-200) Creatine Kinase Index 1.9 Creatinine Kinase MB (Mass) 1.27ng/ml (0.0-2.4) LEO SIMMONS NP May 16, 2017 18:11
== END 2017-05-16 17:44 | disposition left against medical advice (07) | DRG 313 ==
LOC: E/R 09:47 → TEL 11:54
PROVIDERS: ADMIT Internal Medicine; ATTEND Internal Medicine
DX: R07.9 Chest pain, unspecified (principal); F11.20 Opioid dependence, uncomplicated; Z72.0 Tobacco use; G89.29 Other chronic pain; M54.9 Dorsalgia, unspecified; Z91.14 Patient's other noncompliance with medication regimen; Z91.19 Patient's noncompliance with other medical treatment and regimen
CPT/HCPCS: 36415; 71010; 80048; 82550; 82553; 84484; 85025; 85610; 85730; 93005; 96374; J2405

== ENCOUNTER 2019-04-21 20:51 | Emergency (ER) | payer OTHER ==
[~2019-04-21] VITALS: Ht 167.6 cm; Wt 75.0 kg
[~2019-04-21 20:51] MED LIST changes: +ALBU18HF INHALATION; +ALBU2.5V3 NEB; +DIAZ10TA4 PO; +NITR0.4T39 SL; +ONDA4TAB13 PO; +TRA100 PO
[2019-04-21 21:03] VITALS: BP 146/82; PULSE 74; RESP 18; Ht 167.6 cm; Wt 75.0 kg
[2019-04-21] MEDS ORDERED: HYDR-4011 PO (23:56)
--- NOTE | 2019-04-22 01:49 | ERD ---
ER Documentation Chief Complaint Chief Complaint NECK PAIN , S/P MULTIPLE CERVICAL FUSION'S HPI The patient is a 63-year-old male, presenting to the ER because of acute on chronic neck pain. He denies any trauma. He complains of right-sided headache that he had previously from his neck pain, denies blurred vision, chest pain, dyspnea, abdominal pain, vomiting, dizzy, diarrhea. Past Medical/surgical history: Chronic neck pain with multiple surgery ROS All systems reviewed and are negative except as per history of present illness. Medications Home Meds Active Scripts Hydrocodone/Acetaminophen (Railroad 5-325 Tablet) 1 Each Tablet, 1 EACH PO QID, #10 TAB Prov:JESSICA GÓMEZ MD 04/21/19 Reported Medications Ondansetron Hcl* (Zofran*) 4 Mg Tab, 4 MG PO Q6H PRN for NAUSEA AND OR VOMITING, TAB 06/24/17 Albuterol Sulfate* (Albuterol Sulfate* Neb) 0.083%-3 Ml Neb, 2.5 MG NEB Q4H PRN for WHEEZING AND SOB, #30 VIAL 06/24/17 Albuterol Sulfate* (Ventolin HFA*) 18 Gm Hfa.aer.ad, 2 PUFF INHALATION Q6H PRN for WHEEZING AND SOB, #1 INHALER 06/24/17 Nitroglycerin* (Nitrostat*) 0.4 Mg Tab.subl, 0.4 MG SL Q5MIN PRN for CHEST PAIN, BOTTLE 05/16/17 Trazodone Hcl* (Trazodone Hcl*) 100 Mg Tablet, 200-400 MG PO QHS, #30 TAB 05/16/17 Diazepam* (Diazepam*) 10 Mg Tablet, 10 MG PO TID, TAB 05/16/17 Morphine Sulfate* (Oramorph SR*) 30 Mg Tablet.sa, 30 MG PO Q4 PRN for SEVERE PAIN LEVEL 7-10, TAB.SA 02/26/17 Allergies Allergies: Coded Allergies: vancomycin (Verified Allergy, Mild, ITCHING, 05/16/17) PMhx/Soc History of Surgery: Yes Anesthesia Reaction: No Hx Neurological Disorder: No Hx Respiratory Disorders: No Hx Cardiac Disorders: No ([place]) Hx Psychiatric Problems: No Hx Miscellaneous Medical Probl: Yes (fibromyalgia) Hx Alcohol Use: No Hx Substance Use: Yes (MARIJUANA) Hx Tobacco Use: Yes (PPD) Smoking Status: Current some day smoker Physical Exam Vitals Vital Signs Date Temp Pulse Resp B/P (MAP) Pulse Ox O2 O2 Flow FiO2 Time Delivery Rate 04/21/19 97.5 57 20 118/91 98 Room Air 22:40 (100) 04/21/19 97.0 74 18 146/82 96 21:03 (103) Physical Exam Const: No acute distress. Head: Atraumatic. Eyes: Normal Conjunctiva. ENT: Normal External Ears, Nose and Mouth. Neck: Full range of motion. No meningismus. Resp: Clear to auscultation bilaterally. Cardio: Regular rate and rhythm. Abd: Soft, non distended, normal bowel sounds, non tender. Skin: No petechiae or rashes. Back: No midline or flank tenderness. Ext: No cyanosis, or edema. Neur: Awake and alert. No focal deficit Psych: Normal Mood and Affect. Procedures/[place] [id number] Radiology Main Line: [phone] DIAGNOSTIC IMAGING REPORT Patient: DEBRA BREAUX : 1955 Age: 63 Sex: M MR #: [id number] DOS: 04/21/19 2231 Ordering MD: JESSICA GÓMEZ MD Location: E/R Room/Bed: PROCEDURE: CT Brain without contrast. CLINICAL INDICATION: Headache. TECHNIQUE: A CT of the brain without contrast was performed utilizing axial sections from the skull base through the vertex. One or more the following does reduction techniques were utilized: Automated exposure control, adjustment of the mA/ or kV according to patient's size, or use of iterative reconstruction technique. Total exam CTDIvol is 40 MGy and DLP is 634 mGy-cm. DICOM images are available. COMPARISON: Brain MRI 01/05/2016, brain CT 01/28/2015. FINDINGS: The ventricles and sulci are mildly prominent indicative of volume loss. There is no intracranial hemorrhage, mass effect or midline shift. No abnormal intra- axial or extra-axial fluid collections are seen. The [place]/white matter differentiation is well preserved. There are minimal scattered foci of hypoattenuation in the periventricular, deep, and subcortical white matter, which are nonspecific in etiology but likely reflect chronic small vessel ischemic changes. There are minimal intracranial vascular calcifications consistent with atherosclerosis. The visualized paranasal sinuses are essentially clear. IMPRESSION: 1. No acute intracranial hemorrhage, transcortical infarction or mass effect. 2. Minimal intracranial atherosclerosis and chronic small vessel ischemic changes. 3. Mild generalized cerebral volume loss. RPTAT: HFN .Arben Taylor MD, MD Date Time Electronically viewed and signed by .Arben Taylor MD, MD on 04/21/2019 23:09 .N/ CC: JESSICA GÓMEZ MD [id number] [place] [id number] Radiology Main Line: [phone] DIAGNOSTIC IMAGING REPORT Patient: DEBRA BREAUX : 1955 Age: 63 Sex: M MR #: [id number] DOS: 04/21/198 Ordering MD: JESSICA GÓMEZ MD Location: E/R Room/Bed: PROCEDURE: XR Cervical Spine. CLINICAL INDICATION: Neck pain. TECHNIQUE: Three views of the cervical spine were performed. Frontal, lateral, and AP open-mouth odontoid. The images were reviewed on a PACS workstation. COMPARISON: 01/28/2015. FINDINGS: There is redemonstration of bilateral crossing laminar screws at the level of C2, bilateral lateral mass screws at C6, connected with posterior spinal rods extend into the thoracic spine. Spinous process stabilization hardware is noted at the level of C5, C6 and C7. Partial corpectomy are seen from C5-T1 with an intervertebral body strut seen between C4 and T2 vertebral body. Anterior metallic plate is seen spanning from C4-T2 with anterior vertebral body screws at C4 and T2. The hardware appears intact and unchanged from 01/28/2015. There is no fracture. There is no lytic or blastic lesion. There is reversal of the normal cervical lordosis in the lower cervical spine. The prevertebral soft tissues are normal. IMPRESSION: 1. Prior surgery with extensive hardware as seen previously. 2. No acute abnormality. 3. No change from the 01/18/2015 images of the cervical spine. RPTAT: QQ .Blas Hart MD, MD Date Time Electronically viewed and signed by .Blas Hart MD, MD on 04/21/2019 22:52 .R/ CC: JESSIAC GÓMEZ MD [id number] MEDICAL MAKING DECISION: The patient is a 63-year-old male, presenting with acute on chronic neck pain, acute cephalgia, most likely due to acute neck pain The differential diagnoses considered include but are not limited to chronic back pain, anxiety attack, panic attack,, sprain, fracture Consultation: His neurosurgeon Dr. Fairchild called and discussed the patient with me. He also recommended the cervical spine x-ray and if negative for an acute finding he can be discharged and he will follow-up with the patient in the office tomorrow Departure Diagnosis: Primary Impression: Neck pain Additional Impression: Headache Condition: Good Patient Instructions: Self-Care for Headaches, Back And Neck Pain, General Referrals: JOSE LUIS FAIRCHILD MD Additional Instructions: He was discharge with 10 tablets of Railroad 5 mg I discussed the findings with the patient. I advised the patient to follow-up with Dr Fairchild in the morning and return if any concern. Disclaimer: Inadvertent spelling and grammatical errors are likely due to EHR/dictation software use and do not reflect on the overall quality of patient care. Also, please note that the electronic time recorded on this note does not necessarily reflect the actual time of the patient encounter. JESSICA GÓMEZ MD Apr 22, 2019 01:49
== END 2019-04-22 00:15 | disposition home or self-care (01) ==
LOC: E/R 20:51
DX: M54.2 Cervicalgia (principal); R51 Headache; I25.2 Old myocardial infarction; F17.210 Nicotine dependence, cigarettes, uncomplicated
CPT/HCPCS: 70450; 72040; Z7502